=== PATIENT | female | born 1965 | race African-American/Black ===

== ENCOUNTER 2024-04-14 14:25 | Emergency (ER) | payer BC ==
[~2024-04-14] VITALS: Ht 167.6 cm; Wt 81.6 kg
[2024-04-14 14:35] VITALS: BP_SYST 152; PULSE 100; RESP 22; TEMP 98.3; O2SAT 98
[2024-04-14 15:28] LABS: BILIRUBIN,URINE NEGATIVE (NEGATIVE); BLOOD, URINE NEGATIVE (NEGATIVE); CLARITY/URINE CLEAR (CLEAR); GLUCOSE,URINE 3+ (NEGATIVE); KETONES,URINE TRACE (NEGATIVE); LEUKOCYTE ESTERASE ,URINE NEGATIVE (NEGATIVE); NITRITE, URINE POSITIVE (NEGATIVE); PH,URINE 5.5 (5.0-8.0); PROTEIN URINE TRACE (NEGATIVE)
[2024-04-14 15:38] LABS: COLOR,URINE ORANGE (YELLOW)
[2024-04-14 15:43] LABS: BACTERIA,URINE FEW /HPF (None Seen); RBC,URINE 0-3 /HPF (0-3); WBC,URINE 0-3 /HPF (0-3)
[2024-04-14 16:01] LABS: BASOPHILS # (AUTO) 0.1 K/uL (0.0-0.2); BASOPHILS % (AUTO) 0.9 % (0.0-2.0); EOSINOPHILS # (AUTO) 0.2 K/uL (0.0-0.4); EOSINOPHILS % (AUTO) 2.7 % (0.0-4.0); HEMATOCRIT 39.7 % (36-48); HEMOGLOBIN 13.2 g/dL (12.0-16.0); LYMPHOCYTES # (AUTO) 2.2 K/uL (1.0-5.5); MEAN CORPUSCULAR HEMOGLOBIN 26 pg (27-31); MEAN CORPUSCULAR HGB CONC 33 % (32-36); MEAN CORPUSCULAR VOLUME 78 fL (79.0-98.0); MONOCYTES # (AUTO) 0.5 K/uL (0.0-1.0); MONOCYTES % (AUTO) 7.8 % (1.7-9.3); NEUTROPHILS # (AUTO) 3.7 K/uL (1.8-7.7); NEUTROPHILS % (AUTO) 55.6 % (40.0-70.0); PLATELET COUNT (AUTO) 326 K/uL (130-430); WHITE BLOOD COUNT (AUTO) 6.6 K/uL (4.8-10.8)
[2024-04-14 16:25] LABS: ALBUMIN 3.8 g/dL (3.4-4.8); BILIRUBIN,DIRECT 0.1 mg/dL (0.0-0.3); CALCIUM 9.3 mg/dL (8.4-11.0); CREATININE 0.8 mg/dL (0.55-1.30); POTASSIUM 3.9 mmol/L (3.5-5.1); TOTAL BILIRUBIN 0.4 mg/dL (0.0-1.0); TOTAL PROTEIN, SERUM 6.8 g/dL (6.4-8.3)
[2024-04-14 16:29] LABS: PROTHROMBIN TIME 9.9 SECS (9.5-12.5)
[2024-04-14] MEDS: MORPHINE 2 MG/ML INJ. SYRINGE IM ONE (16:37)
[2024-04-14] MEDS ORDERED: NITR-85 PO (17:01)
[2024-04-14] MEDS ORDERED: TRAM50TA2 PO (17:01)
[2024-04-14] MEDS: cefTRIAXone 1 GM in LIDOCAINE 1%, 20 ML MDV 2.1 ML IM ONE (17:16)
[2024-04-14] MEDS ORDERED: LEVO-62 PO (17:51)
[2024-04-14 17:56] VITALS: BP_SYST 152; PULSE 100; RESP 22; TEMP 98.3; O2SAT 98
[2024-04-14] MEDS ORDERED: VANCOMYCIN HCL 1000 MG/VIAL IV ONE (23:14)
== END 2024-04-14 17:55 | disposition home or self-care (01) ==
LOC: SED 14:25
DX: N39.0 Urinary tract infection, site not specified (principal); R10.30 Lower abdominal pain, unspecified; Z88.0 Allergy status to penicillin; Z88.1 Allergy status to other antibiotic agents; Z88.5 Allergy status to narcotic agent; Z88.6 Allergy status to analgesic agent; Z79.899 Other long term (current) drug therapy
CPT/HCPCS: 99285; 74176; 80076; 80048; 81001; 82150; 83690; 85025; 85610; 85730; 87086; 36415; 96372; 83605; 82397; J0696; J2270; 81000; 81015; J2001; J3370